=== PATIENT | male | born 1950 | race Caucasian/White ===

== ENCOUNTER 2019-07-01 16:08 | Inpatient (IN) ==
--- NOTE | 2019-07-01 16:44 | EKG Report ---
Test Performed on : 07/01/2019 4:30:47 PM Test Reason : SOB Blood Pressure : / mmHG Vent. Rate : 113 BPM Atrial Rate : 113 BPM P-R Int : 128 ms QRS Dur : 092 ms QT Int : 340 ms P-R-T Axes : 043 -12 061 degrees QTc Int : 466 ms Sinus tachycardia. Possible Left atrial enlargement Cannot rule out Anterior infarct (cited on or before 14-APR-2012) Abnormal ECG When compared with ECG of 14-APR-2012 07:39, Vent. rate has increased BY 42 BPM T wave amplitude has decreased in Inferior leads Unconfirmed Result
[2019-07-01] MEDS ORDERED: NS 1,000 ML IV ONE (16:55)
[2019-07-01] MEDS ORDERED: MAXIPIME 1 GM in NS 50 ML IV ONE (16:56)
[2019-07-01] MEDS ORDERED: NS 500 ML IV ONE ×2 (16:57→17:50)
--- NOTE | 2019-07-01 16:57 | Diag Imaging Result Doc PS360 ---
EXAM: CHEST-1 VIEW HISTORY: SOB TECHNIQUE: Single view COMPARISON: 04/14/2012 FINDINGS: The lungs are well expanded. No cardiomegaly. There are increased interstitial markings throughout both lungs. These are more prominent than on the prior study. No pleural effusions identified. Right-sided granuloma. IMPRESSION: There is likely a combination of pulmonary edema and fibrosis. Electronically signed by Yoshi Romero 07/01/2019 4:54 PM
[2019-07-01 17:09] LABS: BASO# 0.01 X1000 (0.0-0.2); BASO% 0.1 % (0.0-0.8); HEMATOCRIT 36.4 % (42.0-52.0); HEMOGLOBIN 12.3 g/dL (14.0-18.0); LYMPH# 0.31 X1000 (1.2-3.4); LYMPH% 4.4 % (20.5-51.1); MCH 31.1 PG (27-31); MCHC 33.8 g/dL (33-37); MCV 91.9 FL (81-99); MONO# 0.52 X1000 (0.11-0.59); MONO% 7.4 % (1.7-9.3); MPV 10.6 FL (7.4-10.4); NEUT# 6.17 X1000 (1.4-6.5); NEUT% 88.1 % (42.2-75.2); PLT 116 X1000 (130-400); RBC 3.96 XMIL (4.7-6.1); RDW 14.1 % (11.5-14.5); WBC 7.01 X1000 (4.8-10.8)
[2019-07-01 17:11] LABS: INR 1.05; PROTIME 13.8 Seconds (11.0-16.0); PTT 28.4 Seconds (22.3-41.8)
[2019-07-01 17:29] LABS: AGAP 11; ALB/GLOB RATIO 1.3; ALBUMIN 3.7 g/dL (3.5-5.0); ALKALINE PHOSPHATASE 59 U/L (32-122); BUN 8 mg/dL (8-22); CALCIUM 8.1 mg/dL (8.8-10.2); CHLORIDE 94 mmol/L (98-107); COSMO 263; CREATININE 0.7 mg/dL (0.7-1.2); ESTIMATED GFR > 60; GLUCOSE 194 mg/dL (70-104); GOT 31 U/L (10-34); GPT 24 U/L (10-44); MAGNESIUM 1.6 mg/dL (1.5-2.7); POTASSIUM 3.3 mmol/L (3.5-5.1); SODIUM 129 mmol/L (136-145); TCO2 24 mmol/L (25-35); TOTAL BILIRUBIN 1.24 mg/dL (0.20-1.00); TOTAL PROTEIN 6.6 g/dL (6.3-8.3)
[2019-07-01 17:31] LABS: CK PROFILE 330 U/L (24-204)
[2019-07-01] MEDS ORDERED: POTASSIUM CHLORIDE 20% LIQUID PO ONE (17:50)
[2019-07-01] MEDS ORDERED: DUONEB (A & A) INH ONE (17:52)
[2019-07-01 17:58] LABS: CK INDEX 1.8 (0.0-2.5)
[2019-07-01 18:16] LABS: URINE SOURCE CLEAN CATCH
[2019-07-01 18:22] LABS: BILIRUBIN URINE NEGATIVE (NEGATIVE); BLOOD URINE SMALL (NEGATIVE); COLOR YELLOW; GLUCOSE URINE TRACE mg/dL (NEGATIVE); KETONE URINE 20 mg/dL (NEGATIVE); LEUKOCYTES URINE NEGATIVE (NEGATIVE); NITRITE URINE NEGATIVE (NEGATIVE); PROTEIN URINE 30 mg/dL (NEGATIVE); SP GRAVITY URINE 1.009; TURBIDITY URINE CLEAR (CLEAR); UROBILINOGEN URINE 2 mg/dL (NORMAL)
[2019-07-01 18:26] LABS: UR EPITHELIAL CELLS <10 /HPF (<10); URINE BACTERIA NEGATIVE /HPF; URINE RBC <10 /HPF (<10); URINE WBC <10 /HPF (<10)
[2019-07-01] MEDS ORDERED: ULTRAM PO ONE (18:35)
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
--- NOTE | 2019-07-01 19:40 | Diag Imaging Result Doc PS360 ---
EXAM: CT ANGIOGRM PULMONARY ARTERIES HISTORY: difficulty breathing, left arm swollen TECHNIQUE: CT chest with intravenous contrast. Pulmonary arterial protocol. COMPARISON: None. FINDINGS: Normal opacification of the pulmonary arteries and their major branches. No aortic aneurysm or dissection. No cardiomegaly. No pleural effusions. There are small calcified mediastinal and right hilar lymph nodes with scattered granuloma. Moderate to prominent emphysema with fibrosis. Small infiltrate or fibrosis superiorly and apical segment of the left lower lobe. IMPRESSION: 1.No pulmonary emboli 2.Emphysema with fibrosis 3.Questionable tiny infiltrate in the left lower lobe This exam was performed using automated exposure control, adjustment of mA or kV according to patient size, and/or use of iterative reconstruction technique. Electronically signed by Yoshi Romero 07/01/2019 7:38 PM
[2019-07-01] MEDS ORDERED: KLOR-CON PO ONE (23:43)
[2019-07-01] MEDS ORDERED: MAGNESIUM SULFATE 1 GM/D5W 1 GM/100 ML IVPB IV ONE (23:43)
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
[2019-07-02] MEDS ORDERED: LOVENOX SUBQ SCH (01:30)
[2019-07-02] MEDS ORDERED: TYLENOL PO PRN (01:30)
[2019-07-02] MEDS ORDERED: ZOFRAN IV PRN (01:30)
[2019-07-02] MEDS ORDERED: MAXIPIME 1 GM in NS 50 ML IV SCH (01:30)
[2019-07-02] MEDS ORDERED: LEVAQUIN 500 MG/D5W 500 MG/100 ML IVPB IV SCH (01:30)
[2019-07-02] MEDS ORDERED: ULTRACET 37.5MG/325MG PO PRN (01:30)
[2019-07-02] MEDS: PEPCID PO SCH ×2 (02:21→08:02)
[2019-07-02] MEDS: NEURONTIN PO SCH ×2 (03:34→12:34)
[2019-07-02] MEDS: DUONEB (A & A) INH SCH ×2 (03:47→10:17)
[2019-07-02 06:53] LABS: HEMOGLOBIN A1C 7.5 % (4.8-6.0)
[2019-07-02] MEDS: HUMALOG SUBQ SCH ×2 (06:53→12:34)
[2019-07-02 07:07] LABS: AGAP 7; BUN 9 mg/dL (8-22); CALCIUM 8.1 mg/dL (8.8-10.2); CHLORIDE 103 mmol/L (98-107); COSMO 272; CREATININE 0.6 mg/dL (0.7-1.2); ESTIMATED GFR > 60; GLUCOSE 192 mg/dL (70-104); MAGNESIUM 1.9 mg/dL (1.5-2.7); POTASSIUM 3.9 mmol/L (3.5-5.1); SODIUM 134 mmol/L (136-145); TCO2 24 mmol/L (25-35)
[2019-07-02] MEDS ORDERED: PLAVIX PO SCH ×2 (09:00)
[2019-07-02] MEDS ORDERED: LIPITOR PO SCH (09:00)
[2019-07-02] MEDS ORDERED: NORVASC PO SCH (09:00)
[2019-07-02] MEDS ORDERED: ASPIRIN PO SCH ×2 (09:00)
[2019-07-02] MEDS ORDERED: LANTUS INSULIN SUBQ SCH (09:00)
[2019-07-02] MEDS ORDERED: PLETAL PO SCH (09:00)
--- NOTE | 2019-07-02 09:49 | PROGRESS NOTE ---
DATE: 07/02/2019 SUBJECTIVE: Mr. Vargas presented after having 2 to 3 days of dyspnea. This is a 69-year-old who has no primary care physician here. I think he told me he was in [place] visiting when they had put a stent in. Apparently had put a stent in his leg too, by his report. He has a problem with vascular flow in the left leg, history of hypertension, COPD, hyperlipidemia, recently diagnosed with peripheral artery disease, status post stent in the left femoral artery, coronary artery disease, status post coronary artery stent, location unknown. He says he underwent two procedures in the hospital in [place], [place], where he was staying with his niece, developed some claudication and chest pain. Procedure was 3 days before admission. He had a stent placed in the right femoral artery, and then took a bus back to [place], [place]. On the way, his bus broke down, and said on the bus, he developed fever and worsening cough. On arrival to [place], he came to the emergency room. Previously, he could walk 50 feet with a little dyspnea. He could barely go 10 to 20 feet without profound dyspnea, so admitted with right lower lobe pneumonia, chronic COPD, coronary artery disease, peripheral artery disease, diabetes mellitus type 2, and hypertension. PHYSICAL EXAMINATION: General: Today, he is awake and alert. Reports he feels a little bit better, breathing a little better. He is on O2 per nasal cannula. Vital Signs: Temperature 98.1 degrees, pulse 80, respirations 18, blood pressure 137/78. HEENT: Pupils are equal and round. Lungs: Clear in all lung louise. Cardiovascular: Regular rhythm and rate without murmur or S3. Abdomen: Soft. Skin: Warm and dry. IMAGING: His pulmonary angiogram showed no pulmonary emboli. There is emphysema with fibrosis. ASSESSMENT AND PLAN: 1. Right lower lobe pneumonia, underlying chronic obstructive pulmonary disease, exacerbation of chronic obstructive pulmonary disease. Continue his bronchodilators and his antibiotics. 2. Coronary artery disease. Aware. Apparently, recent stent. I do not have the location of where that was. 3. Peripheral artery disease. Apparently recently had intervention. I am not sure which leg he has had the intervention on. 4. Diabetes mellitus type 2. 5. Hypertension. Blood pressure appears well controlled. REVIEW OF ORDERS: I do not see any change. REVIEW OF LAB: Electrolytes unremarkable. cc: Xu Pennington MD
[2019-07-02 11:47] VITALS: BP 126/67
[2019-07-02] MEDS ORDERED: CARDURA PO SCH (21:00)
--- NOTE | 2019-07-29 13:29 | DISCHARGE SUMMARY ---
ADMISSION DATE: 07/02/2019 DISCHARGE DATE: 07/02/2019 HISTORY AND HOSPITAL COURSE: Mr. Vargas was admitted on 07/02/2019, and he left AGAINST MEDICAL ADVICE on 07/02/2019. He came with a 2 to 3-day history of dyspnea. He has no primary care physician. A 69-year-old with past medical history of hypotension, COPD, hyperlipidemia, recently diagnosed with peripheral artery disease, status post stent in the right femoral artery, and coronary artery disease, status post coronary stent, location unknown. States he underwent two procedures in a hospital in [place], [place], where he was staying with his niece. He develops severe claudication and chest pain. Underwent these procedures. His last procedure was 3 days before this admission, where he had a stent placed in the right femoral artery. He then took a bus from [place], [place], back to [place], where he resides. On the way, his bus broke down, and said while he was in the bus, he developed a fever and worsening cough. On arrival in [place], he said his cough got worse, had some dyspnea, and also got 20 feet before becoming profoundly dyspneic. Admits to having pleuritic chest pain and mild orthopnea. No paroxysmal nocturnal dyspnea, leg swelling, or extremity redness or pain. Does have some residual pain in his right groin, where he had coronary catheterization and a sheath was placed. Denies any genitourinary complaints. He does admit to having a few stools, which were nonbloody. He admits to having nausea, but no vomiting today. No focal neurologic complaints. No arthralgia, rash. The patient says the cough is nonproductive, and denies any sick contacts. ALLERGIES: He is allergic to morphine and Seroquel. LIST OF MEDICATIONS: He was on Plavix, aspirin, Cardura, Pletal, gabapentin, metformin, atorvastatin, Norvasc, Plavix 20 mg daily, Requip 0.5 mg every p.m., and Voltaren. He was admitted. ADMISSION DIAGNOSES: 1. Right lower lobe pneumonia was questionable. 2. Underlying chronic obstructive pulmonary disease. 3. History of coronary artery disease. 4. Peripheral artery disease. 5. Type 2 diabetes. 6. Hypertension. 7. Possibility of community-acquired pneumonia. His chest x-ray on admission is likely a combination of pulmonary edema and fibrosis. The patient was treated with some antibiotics and bronchodilators, and he appeared to have a right lower lobe pneumonia, underlying chronic obstructive pulmonary disease, coronary artery disease, peripheral artery disease, diabetes mellitus, and hypertension. Plan was to continue treatment. However, he went to sign out. He said he was very nervous and wanted to get out of here, and he elected to leave AGAINST MEDICAL ADVICE, and so left AGAINST MEDICAL ADVICE at 1511 on 07/02/2019. cc: Xu Pennington MD
== END 2019-07-02 15:18 | disposition left against medical advice (07) | DRG 194 ==
LOC: SUPCPDRO → ED 16:08 → SUATTDRO 07-02 00:59 → 4N 07-02 00:59
PROVIDERS: ATTEND Emergency Medicine

== ENCOUNTER 2019-07-08 16:49 | Inpatient (IN) ==
[2019-07-08] MEDS ORDERED: ASPIRIN PO ONE (17:15)
[2019-07-08 17:25] LABS: BASO# 0.05 X1000 (0.0-0.2); BASO% 1.2 % (0.0-0.8); EOS# 0.11 X1000 (0.0-0.7); EOS% 2.6 % (0.0-10.0); HEMATOCRIT 36.9 % (42.0-52.0); HEMOGLOBIN 12.3 g/dL (14.0-18.0); IMM GRAN# 0.05 X1000 (0.0-0.04); IMM GRAN% 1.2 % (0.0-0.5); LYMPH# 1.05 X1000 (1.2-3.4); LYMPH% 24.6 % (20.5-51.1); MCH 31.1 PG (27-31); MCHC 33.3 g/dL (33-37); MCV 93.2 FL (81-99); MONO# 0.32 X1000 (0.11-0.59); MONO% 7.5 % (1.7-9.3); NEUT# 2.68 X1000 (1.4-6.5); NEUT% 62.9 % (42.2-75.2); PLT 233 X1000 (130-400); RBC 3.96 XMIL (4.7-6.1); RDW 14.2 % (11.5-14.5); WBC 4.26 X1000 (4.8-10.8)
--- NOTE | 2019-07-08 17:29 | EKG Report ---
Test Performed on : 07/08/2019 5:04:32 PM Test Reason : sob Blood Pressure : / mmHG Vent. Rate : 108 BPM Atrial Rate : 108 BPM P-R Int : 128 ms QRS Dur : 086 ms QT Int : 340 ms P-R-T Axes : 000 215 137 degrees QTc Int : 455 ms Sinus tachycardia. Right superior axis deviation Nonspecific ST abnormality Abnormal ECG When compared with ECG of 01-JUL-2019 16:30, (Unconfirmed) QRS axis shifted left Unconfirmed Result
--- NOTE | 2019-07-08 17:31 | Diag Imaging Result Doc PS360 ---
EXAM: CHEST-2 VIEWS 07/08/2019 HISTORY: sob TECHNIQUE: PA and lateral chest COMMENT: There are reticulonodular interstitial opacities throughout both lungs. This was also the case on 07/01/2019. The interstitial opacities are more dramatic and coarser than on 12/21/2011. IMPRESSION: Worsened pulmonary fibrosis. The possibility of superimposed pulmonary edema or pneumonia cannot be entirely excluded. Electronically signed by Anthony Rivera 07/08/2019 5:29 PM
[2019-07-08 17:33] LABS: INR 1.07
[2019-07-08 17:34] LABS: PTT 25.4 Seconds (22.3-41.8)
[2019-07-08 17:48] LABS: AGAP 9; ALBUMIN 3.6 g/dL (3.5-5.0); ALKALINE PHOSPHATASE 74 U/L (32-122); BUN 11 mg/dL (8-22); CALCIUM 8.8 mg/dL (8.8-10.2); CHLORIDE 105 mmol/L (98-107); CK PROFILE 256 U/L (24-204); COSMO 283; CREATININE 0.9 mg/dL (0.7-1.2); ESTIMATED GFR > 60; GLUCOSE 172 mg/dL (70-104); GOT 25 U/L (10-34); GPT 31 U/L (10-44); POTASSIUM 4.5 mmol/L (3.5-5.1); SODIUM 140 mmol/L (136-145); TCO2 26 mmol/L (25-35); TOTAL PROTEIN 7.2 g/dL (6.3-8.3)
[2019-07-08 18:05] LABS: CK INDEX 2.5 (0.0-2.5); CK-MB 6.48 ng/mL (0.0-5.0)
[2019-07-08 21:07] LABS: URINE SOURCE CLEAN CATCH
[2019-07-08 21:09] LABS: BILIRUBIN URINE NEGATIVE (NEGATIVE); BLOOD URINE NEGATIVE (NEGATIVE); COLOR YELLOW; GLUCOSE URINE NEGATIVE (NEGATIVE); KETONE URINE NEGATIVE (NEGATIVE); LEUKOCYTES URINE NEGATIVE (NEGATIVE); NITRITE URINE NEGATIVE (NEGATIVE); PH URINE 6.5; PROTEIN URINE TRACE mg/dL (NEGATIVE); SP GRAVITY URINE 1.019; TURBIDITY URINE CLEAR (CLEAR); UROBILINOGEN URINE NORMAL (NORMAL)
[2019-07-08 21:11] LABS: UR EPITHELIAL CELLS <10 /HPF (<10); URINE BACTERIA NEGATIVE /HPF; URINE RBC <10 /HPF (<10); URINE WBC <10 /HPF (<10)
[2019-07-08] MEDS ORDERED: NITROGLYCERIN SL ONE (22:32)
[2019-07-08] MEDS ORDERED: LEVAQUIN 500 MG/D5W 500 MG/100 ML IVPB IV ONE (22:32)
[2019-07-08] MEDS ORDERED: DUONEB (A & A) INH PRN (22:50)
[2019-07-08] MEDS ORDERED: NS 1,000 ML IV SCH (23:00)
[2019-07-08] MEDS ORDERED: ASPIRIN ONE (23:07)
[2019-07-08] MEDS: NITROGLYCERIN TOP SCH (23:08)
[2019-07-08] MEDS: DUONEB (A & A) INH SCH (23:23)
[2019-07-09 01:08] LABS: CK INDEX 2.4 (0.0-2.5); CK-MB 6.64 ng/mL (0.0-5.0)
[2019-07-09] MEDS: NORCO-7.5 PO PRN ×4 (01:18→23:47)
[2019-07-09] MEDS: DUONEB (A & A) INH SCH ×6 (02:34→23:13)
[2019-07-09] MEDS: PRILOSEC PO SCH (07:00)
[2019-07-09] MEDS ORDERED: SALINE LOCK IV FLUID XX ONE (07:01)
--- NOTE | 2019-07-09 07:26 | HISTORY AND PHYSICAL ---
CHIEF COMPLAINT: Right-sided chest pain. HISTORY OF PRESENT ILLNESS: Mr. John Vargas is a 69-year-old male who has a history of hypertension, COPD, hyperlipidemia, and recently diagnosed peripheral artery disease, status post stent to the right femoral artery, and also has a history of coronary artery disease, status post PCI. The patient was recently admitted to our hospital on 07/02/2019. However, the patient signed out and left AGAINST MEDICAL ADVICE, and during that hospital stay, he was diagnosed as having right lower lobe pneumonia. The patient now presents to the hospital because of right- sided chest pain, which he has had for about 3 days. He describes the pain as sharp, intermittent. On a scale of 0 to 10, it is 7/10. No known alleviating factors. Made worse with activity. He has shortness of breath. The patient was seen and evaluated in the ER. He had an x- ray of the chest done, which showed evidence of worsening pulmonary fibrosis with possible superimposed pulmonary edema or pneumonia, which cannot be entirely excluded. The patient will now be admitted to the floor now for further management. PAST MEDICAL HISTORY: Hypertension, COPD, hyperlipidemia, peripheral arterial disease status post stent to the right femoral artery, coronary artery disease status post PCI. PAST SURGICAL HISTORY: He has had left shoulder surgery, as well as left hip surgery and also back surgery. SOCIAL HISTORY: The patient smokes cigarettes and uses marijuana. No alcohol use. FAMILY HISTORY: Not contributory. ALLERGIES: He is allergic to Seroquel as well as morphine. REVIEW OF SYSTEMS: Constitutional: Has fever. 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 Eyes: Blurred vision. ENT: Sinus [*] Cardiovascular: As in the history of present illness. Respiratory: Has cough. GI: Has nausea. No abdominal pains. Dermatology: No skin lesions. Musculoskeletal: Has joint pains. Hematology: He bruises easily. Psychiatric: Has anxiety with depression. Endocrinology: No thyroid disease or diabetes. PHYSICAL EXAMINATION: VITAL SIGNS: Temperature is 97.9 degrees, pulse is 110, respiratory rate 16, blood pressure is 126/67, oxygen saturation is 92%. HEENT: He is atraumatic, normocephalic. He is anicteric. Extraocular movements intact. No oral lesions noted. NECK: No lymphadenopathy or thyromegaly. CARDIOVASCULAR: S1, S2. RESPIRATORY: Has evidence of good air entry bilaterally with occasional rhonchi noted. ABDOMEN: Soft, nontender. No masses felt. EXTREMITIES: No evidence of edema. CENTRAL NERVOUS SYSTEM: No obvious focal deficit noted. IMAGING AND LABORATORY DATA: WBC is 4.26, hematocrit is 36.9, with a platelet count of 233,000. Sodium is 140, potassium 4.5, chloride is 105, bicarb is 26, BUN is 11, creatinine 0.9. X-ray of the chest shows worsened pulmonary fibrosis with superimposed pulmonary edema and/or pneumonia. EKG shows sinus tachycardia with right superior axis deviation, nonspecific ST abnormalities. ASSESSMENT AND PLAN: 1. Atypical chest pain. Will place the patient on telemetry, get serial cardiac enzymes, maintain the patient on aspirin as well as beta shawn, nitropaste as needed for chest pain. Consult with Cardiology. 2. Hypertension. Optimize blood pressure control. 3. Probable pneumonia. Obtain sputum and blood cultures. Maintain the patient on antibiotics. 4. Pulmonary fibrosis. Maintain the patient on supplemental oxygen. Consult with Pulmonology. 5. Probable pulmonary edema. Maintain the patient on diuretics as needed. Monitor intakes and outputs, as well as daily weights. Request 2D echocardiogram of the heart. 6. Peripheral arterial disease. The patient indicates that he recently had a stent in the right lower extremity about 5 days ago. This was done in [place], [place]. Will consult with the surgical team. 7. Deep vein thrombosis prophylaxis. Lovenox. 8. Gastrointestinal prophylaxis. Proton pump inhibitor. cc: Kris Montes De Oca MD
[2019-07-09] MEDS: PLAVIX PO SCH (09:00)
[2019-07-09] MEDS: ASPIRIN PO SCH (09:00)
[2019-07-09] MEDS: COREG PO SCH ×2 (09:00→21:51)
[2019-07-09 09:34] LABS: CHOLESTEROL 99 mg/dL (0-200); HDL 44 mg/dL (35-55); LDL 43 mg/dL; TRIGLYCERIDES 62 mg/dL (39-160); VLDL 12 mg/dL
[2019-07-09 10:26] LABS: CK INDEX 2.6 (0.0-2.5); CK-MB 6.15 ng/mL (0.0-5.0)
--- NOTE | 2019-07-09 10:53 | GENERAL SURGERY CONSULTATION ---
DATE: 07/09/2019 REQUESTING PHYSICIAN: Hospitalist. REASON FOR CONSULTATION: Consult concerning peripheral vascular disease. HISTORY OF PRESENT ILLNESS: A 69-year-old gentleman with a history of hypertension, COPD, hyperlipidemia, who has had a stent done in his right leg in [place] apparently 5 days ago. He had previously been in the hospital here and left against medical advice. I do not have any of the reports from the outlying facility about his procedure done, but he said in the left leg he has had 100% blockage too, and they wanted to do a procedure then. For several social reasons, he did not stick around [place]. He complained of some right leg pain, but initially came in with right- sided chest pain. He is currently being evaluated by the hospitalist service for that. I was asked to weigh an opinion on his right leg. He reports pain, but not really a claudication like history. PAST MEDICAL HISTORY: Includes hypertension, COPD, hyperlipidemia, peripheral artery disease, coronary artery disease. PAST SURGICAL HISTORY: Includes left shoulder surgery, left hip surgery, back surgery, previous percutaneous intervention of his right leg. SOCIAL HISTORY: Current smoker, uses marijuana. FAMILY HISTORY: Reviewed with the patient and noncontributory. ALLERGIES: Seroquel, morphine. REVIEW OF SYSTEMS: A full 14 systems reviewed and negative except as specified in HPI. HOME MEDICATIONS: Reviewed. PHYSICAL EXAMINATION: Vital Signs: The patient is currently afebrile. His vital signs are stable. General: No acute distress. A disheveled male, looks his stated age. HEENT: Normocephalic, atraumatic. Pupils equal, round, reactive to light. Mucous membranes moist. Oropharynx benign. Neck: Supple, trachea midline. Cardiovascular: Regular rate and rhythm. Lungs: Grossly clear. Abdomen: Soft, nontender. Extremities: In the right groin, there is a firm area likely, in the area where they had previously accessed. It is not pulsatile, but it may be a hematoma. There is some ecchymosis noted. The right leg is perfused. On the extremities, the left leg is also perfused, but I could not easily feel a pulse to either leg. Neurologic: Grossly intact. Skin: Bruising as noted above. Vascular: As noted above. LABORATORY DATA: Reviewed. Creatinine is normal. ASSESSMENT AND PLAN: A 69-year-old gentleman with reported peripheral vascular disease. Peripheral vascular disease: At this time, he has a history of a recent stent. We will need to get a CT angiography to delineate the anatomy better. Given his recent stent and unknown exactly where it is, we cannot really do an FIORDALIZA at this point. He is on Plavix it looks like, so we will continue that. No immediate plans for surgical intervention until we get the CT angiography. cc: Payam Zambrano MD
[2019-07-09] MEDS: NITROGLYCERIN TOP SCH ×2 (11:00→17:43)
[2019-07-09] MEDS ORDERED: KLONOPIN PO ONE (11:24)
[2019-07-09] MEDS: NICODERM PATCH TD SCH (11:45)
--- NOTE | 2019-07-09 12:52 | CONSULTATION ---
DATE OF CONSULTATION: 07/09/2019 IMPRESSION: 1. Chest pain atypical for myocardial ischemia. Troponins negative. Suspect likely noncardiac. 2. Atherosclerotic coronary disease. Patient recently had coronary angioplasty/stenting of unspecified vessel while in [facility]. He initially presented with atypical chest pain and right lower extremity claudication as best I can tell. 3. Chronic obstructive pulmonary disease. 4. Hypertension. 5. Peripheral artery disease with recent percutaneous interventions on right lower extremity. 6. Recurrent right hip pain and some discomfort right lower extremity. 7. Chronic ongoing cigarette use. 8. Anxiety disorder. 9. Polysubstance abuse with marijuana. RECOMMENDATIONS: 1. Continue dual antiplatelet therapy with aspirin and Plavix. 2. Echocardiography. 3. Add low-dose statin given recent lipid profile with LDL cholesterol of 99. 4. Smoking cessation strongly advised. 5. Try and obtain records from [place] regarding patient's coronary angioplasty/stenting and management of peripheral artery disease. 6. Surgical evaluation of patient's peripheral artery disease. HISTORY: This 69-year-old white male with past history of recent coronary angioplasty/stenting, recent percutaneous intervention on right lower extremity after he presented with claudication, hypertension, COPD, and chronic ongoing cigarette use, presented to the emergency room with multiple complaints, including some fleeting sharp pain in the right posterior chest and discomfort in the right hip. He has had some cough productive of white sputum. Because of chest symptoms and recent coronary angioplasty/stenting, Cardiology was consulted. He does not describe anything that sounds like angina prior to his coronary angioplasty/stent nor recently. He describes some "fleeting electrical" discomfort in the chest. He presented to hospital in [facility] with what sounds like fairly intense right lower extremity claudication. He describes having extensive evaluation there and percutaneous intervention on right lower extremity. He also had cardiac evaluation and had a coronary angioplasty/stenting. He is somewhat sketchy about his compliance with medications. He believes he has been continued on Plavix and aspirin. He was recently here in the emergency room for evaluation of atypical chest pain. Chest CT scan was negative for pulmonary embolus. He was thought to have possible right-sided pneumonia, but left AMA. He relates that he started feeling worse and came back to the hospital. He describes some fleeting discomfort in the right very low posterior chest region. As well as right hip. He has had cough productive of white sputum, but is not aware of any fever. PAST MEDICAL HISTORY: 1. Atherosclerotic coronary disease. 2. Peripheral artery disease. 3. Chronic obstructive pulmonary disease. 4. Hypertension. 5. Hyperlipidemia. 6. Inconsistent medical compliance. 7. Anxiety disorder. 8. Polysubstance abuse with marijuana. PAST SURGICAL HISTORY: Includes unspecified left shoulder surgery, unspecified left hip surgery, unspecified back surgery, and recent peripheral artery disease management with percutaneous intervention on right lower extremity. ALLERGIES: He is allergic or intolerant to Seroquel and morphine. MEDICATIONS PRIOR TO ADMISSION: As listed. SOCIAL HISTORY: He lives in [place] and is disabled. He is . He has history of chronic cigarette use, as well as occasional use of marijuana. He does not use alcohol. FAMILY HISTORY: Noncontributory. REVIEW OF SYSTEMS: Pulmonary: Noteworthy for some chronic exertional shortness of breath and cough productive of white sputum. Gastrointestinal: Negative. Constitutional: Negative. The remainder of review of systems negative/noncontributory with 14 total systems reviewed. PHYSICAL EXAMINATION: General: This is an older white male with lloyd in no distress, who appears somewhat anxious. Vital signs: Blood pressure 154/94, heart rate 107. HEENT: Extraocular movements appear intact. Mucous membranes are moist. Neck: Supple without jugular venous distention. There are no carotid bruits. Chest: Auscultation to the chest reveals a few expiratory wheezes scattered and scant rhonchi. Cardiac: Exam reveals a regular rate and rhythm without appreciable murmur or gallop. Abdomen: Soft. Bowel sounds normal. Extremities: Without edema. Pedal pulses are difficult to palpate bilaterally. Neurologic: Exam reveals him to be alert and fully oriented. Speech is fluent. Moves all 4 extremities equally well. Skin: Warm and dry. Psych exam: Reveals him to be somewhat anxious. IMAGING: A 12 lead EKG demonstrates sinus rhythm and nonspecific ST and T-wave abnormality. LABORATORY DATA: Includes sodium 140, potassium 4.5, chloride 105, [*]26. BUN 11, creatinine 0.9, glucose 172. Initial troponin-T high sensitivity 26, followup troponin-T high sensitivity 27. White blood cell count 4.26, hematocrit 36.9, hemoglobin 12.3, platelet count 233. cc: Barry Ely MD
--- NOTE | 2019-07-09 13:22 | Diag Imaging Result Doc PS360 ---
EXAM: CT ANGIOGRM PULMONARY ARTERIES INDICATION: chest pain TECHNIQUE: This exam was performed using automated exposure control, adjustment of mA or kV according to patient size, and/or use of iterative reconstruction technique. Thin section axial images and 3-D MIPS were obtained. COMPARISON: 07/01/2019 FINDINGS: There is no evidence of pulmonary embolism. There is no evidence of thoracic aortic dissection or aneurysm. There are calcified mediastinal and hilar lymph nodes indicating prior granulomatous disease. There is no cardiomegaly. There is a combination of advanced pulmonary edema with concomitant pulmonary fibrosis. On the previous study, there was a left lower lobe airspace consolidation. It has now nearly resolved. There is no pleural fluid collection or pneumothorax. IMPRESSION: 1.Pulmonary emphysema as well as fibrosis. 2.Interval near resolution of the airspace consolidation in the left lower lobe seen on the previous study. 3.No evidence of pulmonary embolism. Electronically signed by Jesus Melendez 07/09/2019 1:19 PM
--- NOTE | 2019-07-09 14:26 | Diag Imaging Result Doc PS360 ---
EXAM: CT ANGIOGRAM AORTA W/RUNOFF INDICATION: PVD with recent stent in RLE at outside facility TECHNIQUE: This exam was performed using automated exposure control, adjustment of mA or kV according to patient size, and/or use of iterative reconstruction technique. Thin section axial images and 3-D MIPS were obtained. COMPARISON: None. FINDINGS: There is extensive atherosclerotic calcification at the distal aorta and milder patchy atherosclerotic calcification proximally. The aorta remains patent. No aortic aneurysm is appreciated. There is extensive atherosclerotic disease involving the common iliac arteries. There is mild to moderate luminal narrowing. There is also extensive internal iliac artery atherosclerotic calcification. There is mild atherosclerotic calcification at the left external iliac artery and moderate calcification at the right external iliac artery. There is mild luminal narrowing at the distal external iliac artery on the right. There is minimal atherosclerotic calcification at the origins of the SMA and the celiac trunk. They both remain patent. The LUCY is patent. There are two left and two right renal arteries. There is minimal atherosclerotic calcification at the origins of the renal arteries bilaterally and mild white calcification at the left renal hilum. The arteries remain patent. No high-grade renal artery stenosis is appreciated. Splenomegaly is noted incidentally with the spleen measuring up to 15.9 cm in the greatest axial dimension. There has been a prior cholecystectomy. There is a tiny nonobstructing intrarenal stone at the lower pole of the right kidney. There is no hydronephrosis. No focal bowel wall thickening or bowel obstruction is identified. There are a few mildly prominent loops of small bowel containing air, possibly indicating mild ileus. There is no obstructive bowel pattern. No other definite acute abdominal or pelvic pathology is appreciated. Right: There is moderate atherosclerotic calcification associated with the common femoral artery but it remains patent. There is extensive atherosclerotic disease involving the superficial femoral artery, which becomes completely occluded at the proximal thigh. It is reconstituted distally and exhibits intermittent high-grade stenosis. There is extensive atherosclerotic calcification involving the popliteal artery. There is moderate intermittent popliteal stenosis. The anterior tibial artery is widely patent throughout its course. There is occlusion of the posterior tibial artery at its origin. However, it is reconstituted at the mid calf and provides runoff to the foot. The peroneal artery is diminutive but appears to remain patent throughout providing runoff to the foot. Left: There is moderate atherosclerotic disease involving the common femoral artery, which remains patent. There is extensive atherosclerotic calcification involving the superficial femoral artery with intermittent moderate to high-grade stenosis. There is a stent in the superficial femoral artery that extends from about the mid thigh to the proximal popliteal artery. The stent is patent. There is moderate atherosclerotic disease involving the proximal popliteal artery but it remains patent. There is trace atherosclerotic calcification at the proximal anterior tibial artery. However, it remains patent throughout its course providing runoff to the foot. There is extensive atherosclerotic disease involving the tibioperoneal trunk with subtotal occlusion. There is focal severe stenosis involving the posterior tibial artery proximally. However, there remains patent thereafter providing runoff to the foot. The peroneal artery is very diminutive. However, it appears to be patent providing runoff to the foot. IMPRESSION: 1.Extensive lower extremity atherosclerotic disease as detailed above. 2.Incidental splenomegaly. Electronically signed by Jesus Melendez 07/09/2019 2:23 PM
[2019-07-09] MEDS: HUMALOG SUBQ SCH ×3 (14:47→21:51)
--- NOTE | 2019-07-09 16:00 | ECHO REPORT ---
ORDER DATE: 07/09/2019 INTERPRETING PHYSICIAN: Dr. Royal Brown. ECHOCARDIOGRAPHIC MEASUREMENTS: 1. Interventricular septum: 1.1 cm. 2. Left ventricular posterior wall: 1.1 cm. 3. Diastolic diameter: 4.2 cm. 4. Left atrium: 4 cm. 5. Aorta: 2.1 cm. SUMMARY OF THE 2-DIMENSIONAL IMAGIN. Aortic valve leaflets were trileaflet. 2. Pulmonic valve was normal. 3. Tricuspid valve was normal. 4. Mitral valve was normal. 5. Normal left ventricular cavity size. 6. Estimated ejection fraction of 55%. 7. Endocardium not well visualized in all views. 8. There is mild septal hypokinesis noted. 9. There is grade 1 diastolic dysfunction. 10. Mitral valve was normal. 11. There is mild mitral regurgitation. 12. Tricuspid valve was normal. 13. There is mild tricuspid regurgitation. 14. Peak velocity across the tricuspid valve less than 2 meters per second. 15. Peak velocity across the aortic valve less than 2 meters per second. 16. By Doppler studies, there is no aortic stenosis or regurgitation. 17. There is no pericardial effusion or obvious intracardiac mass or thrombus seen. 18. Technically suboptimal study. Endocardium not well visualized in all views. cc: MD Kris Nance MD
[2019-07-09 16:02] LABS: CK INDEX 2.6 (0.0-2.5); CK-MB 5.96 ng/mL (0.0-5.0)
[2019-07-09 16:59] LABS: URINE SOURCE CLEAN CATCH
[2019-07-09 17:07] LABS: BILIRUBIN URINE NEGATIVE (NEGATIVE); BLOOD URINE NEGATIVE (NEGATIVE); COLOR YELLOW; GLUCOSE URINE NEGATIVE (NEGATIVE); KETONE URINE NEGATIVE (NEGATIVE); LEUKOCYTES URINE NEGATIVE (NEGATIVE); NITRITE URINE NEGATIVE (NEGATIVE); PH URINE 6.5; PROTEIN URINE TRACE mg/dL (NEGATIVE); SP GRAVITY URINE 1.034; TURBIDITY URINE CLEAR (CLEAR); UROBILINOGEN URINE NORMAL (NORMAL)
[2019-07-09 17:09] LABS: UR EPITHELIAL CELLS <10 /HPF (<10); URINE BACTERIA NEGATIVE /HPF; URINE RBC <10 /HPF (<10); URINE WBC <10 /HPF (<10)
[2019-07-09] MEDS: LOVENOX SUBQ SCH (17:45)
--- NOTE | 2019-07-09 18:02 | PROGRESS NOTE ---
DATE: 07/09/2019 SUBJECTIVE: Patient has no major complaints. He still has some chest discomfort. OBJECTIVE: Vital signs: Blood pressure is 169/84, heart rate 98, respiratory rate 20, temperature 98.1 degrees. Cardiovascular: Regular rate and rhythm. Pulmonary: Bilateral breath sounds. Clear to auscultation. GI: Soft, nontender, nondistended. Bowel sounds were positive. LABORATORY DATA: Imaging: Aortic runoff shows disease with a lot of collateral flow. There is a superficial femoral stent on the right which is patent and there is flow, subtotal occlusion, but with runoff. I am not sure if there is anything amenable to repair, but we will let surgery decide. She is currently on aspirin and Plavix. IMPRESSION: Chest pain. Waiting on records because apparently he just got stented about 3 weeks ago, so waiting on cardiology recommendations and review of records. CTA was negative for PE. DISPOSITION: Pending clinical status. We will continue to follow. cc: Manuel Frances MD
--- NOTE | 2019-07-09 21:41 | PULMONOLOGY CONSULTATION ---
DATE: 07/09/2019 REQUESTING CLINICIAN: Kris Montes De Oca MD REASON FOR CONSULTATION: Pulmonary fibrosis. HISTORY OF PRESENT ILLNESS: Mr. Vargas is a 69-year-old white male with COPD, ongoing tobacco use, ongoing marijuana use, who was admitted to 07/01/2019 with a tiny pneumonia in the left lower lobe. He was diagnosed with a community-acquired pneumonia and then left against medical advice. The patient presented to the emergency room and complained of atypical chest pain. CT scan of the thorax was performed which reveals diffuse pulmonary emphysema with a component of fibrosis. Previous left lower lobe infiltrate has resolved. He is currently being evaluated by Cardiology for atypical chest pain. PAST MEDICAL HISTORY PROBLEM LIST: 1. Chronic obstructive pulmonary disease with continued tobacco use. 2. Hypertension. 3. Peripheral vascular disease status post recent stent placement. 4. Coronary artery disease status post stent placement. 5. Status post left hip surgery. 6. History of back surgery. 7. Status post shoulder surgery. SOCIAL HISTORY: He continues to smoke marijuana and cigarettes. Denies significant alcohol use. FAMILY HISTORY: Noncontributory to current presentation. PHYSICAL EXAMINATION: General: Reveals a well-developed, well-nourished male who appears his stated age, resting comfortably and in no distress. BP 150/70, heart rate 92, respiratory rate 18, oxygen saturation 84% on presentation. HEENT: Pupils are equal and reactive. Oropharynx appears clear. Neck: Supple. Chest: Reveals prolonged expiratory phase without significant wheezing. Cardiac Exam: S1. S2. Abdomen: Soft. Extremities: Warm to the touch. IMPRESSION: 1. A 69-year-old with chronic obstructive pulmonary disease.. 2. Transient hypoxemia. 3. Dyspnea on exertion. 4. Ongoing nicotine addiction and tobacco use. PLAN: 1. Encourage patient to discontinue tobacco and marijuana. 2. Yearly influenza vaccines. 3. Consider outpatient pulmonary function studies. cc: Dion Orellana MD
[2019-07-09] MEDS: REQUIP PO SCH (21:50)
[2019-07-09] MEDS: PRAVACHOL PO SCH (21:51)
[2019-07-09] MEDS ORDERED: LEVAQUIN 500 MG/D5W 500 MG/100 ML IVPB IV SCH (23:00)
[2019-07-10] MEDS: NITROGLYCERIN TOP SCH ×4 (01:58→12:18)
[2019-07-10] MEDS: DUONEB (A & A) INH SCH ×6 (04:31→23:57)
[2019-07-10] MEDS: PRILOSEC PO SCH ×2 (05:48→06:29)
[2019-07-10] MEDS: NORCO-7.5 PO PRN ×3 (05:48→18:32)
[2019-07-10] MEDS: HUMALOG SUBQ SCH ×4 (06:48→23:12)
--- NOTE | 2019-07-10 06:48 | GENERAL SURGERY PROGRESS NOTE ---
DATE: 07/10/2019 SUBJECTIVE: Patient seems to be doing about the same. Upon further questioning, he gives somewhat of a history of claudication, but no real rest pains scenario. His CT angiography shows significant disease bilaterally. OBJECTIVE: Vital Signs: Patient is currently afebrile. His vital signs are stable. General: No acute distress. HEENT: Normocephalic, atraumatic. Pupils equal, round, react to light. Mucous membranes moist. Oropharynx benign. Neck: Supple. Trachea midline. Cardiovascular: Regular rate and rhythm. Lungs: Grossly clear. Abdomen: Soft, nontender. Extremities: Moves all extremities. Neurologic: Grossly intact. Skin: No signs of jaundice. Vascular: All extremities perfused. LABORATORY: None this morning as of yet. IMAGING: CTA as noted above. ASSESSMENT AND PLAN: A 69-year-old gentleman with atypical chest pain with peripheral vascular disease. Peripheral vascular disease: At this time, I would like to have his chest pain worked up fully first and likely can evaluate him further as an outpatient. He does not have any critical limb ischemia, so we do not need to do any emergent operation, and he can follow up with myself or Dr. Agustin as an outpatient here in the near future. cc: Payam Zambrano MD
[2019-07-10 06:58] LABS: BASO# 0.02 X1000 (0.0-0.2); BASO% 0.5 % (0.0-0.8); EOS# 0.12 X1000 (0.0-0.7); EOS% 2.8 % (0.0-10.0); HEMATOCRIT 38.3 % (42.0-52.0); HEMOGLOBIN 12.5 g/dL (14.0-18.0); IMM GRAN# 0.09 X1000 (0.0-0.04); IMM GRAN% 2.1 % (0.0-0.5); LYMPH# 0.95 X1000 (1.2-3.4); MCH 30.6 PG (27-31); MCHC 32.6 g/dL (33-37); MCV 93.6 FL (81-99); MONO# 0.48 X1000 (0.11-0.59); MONO% 11.1 % (1.7-9.3); MPV 10.3 FL (7.4-10.4); NEUT# 2.65 X1000 (1.4-6.5); NEUT% 61.5 % (42.2-75.2); PLT 255 X1000 (130-400); RBC 4.09 XMIL (4.7-6.1); RDW 14.1 % (11.5-14.5); WBC 4.31 X1000 (4.8-10.8)
[2019-07-10 07:44] LABS: AGAP 12; BUN 11 mg/dL (8-22); CALCIUM 8.9 mg/dL (8.8-10.2); CHLORIDE 103 mmol/L (98-107); COSMO 276; CREATININE 0.9 mg/dL (0.7-1.2); ESTIMATED GFR > 60; GLUCOSE 149 mg/dL (70-104); POTASSIUM 4.3 mmol/L (3.5-5.1); SODIUM 137 mmol/L (136-145); TCO2 22 mmol/L (25-35)
--- NOTE | 2019-07-10 07:49 | EKG Report ---
Test Performed on : 07/10/2019 07:28:49 AM Test Reason : chest pain Blood Pressure : / mmHG Vent. Rate : 091 BPM Atrial Rate : 091 BPM P-R Int : 130 ms QRS Dur : 094 ms QT Int : 390 ms P-R-T Axes : 052 027 061 degrees QTc Int : 479 ms Sinus rhythm. with occasional premature ventricular complexes. Possible Left atrial enlargement Borderline ECG When compared with ECG of 08-JUL-2019 17:04, (Unconfirmed) premature ventricular complexes. are now present QRS axis shifted right Confirmed by Zenon BENAVIDEZ, Nemesio Ott ([id number]) on 07/12/2019 2:32:43 PM
[2019-07-10 08:42] LABS: HEMOGLOBIN A1C 8.1 % (4.8-6.0)
[2019-07-10] MEDS: PLAVIX PO SCH (08:50)
[2019-07-10] MEDS: ASPIRIN PO SCH (08:50)
[2019-07-10] MEDS: COREG PO SCH ×2 (08:50→23:27)
[2019-07-10] MEDS: LOVENOX SUBQ SCH (08:50)
[2019-07-10] MEDS: NICODERM PATCH TD SCH (08:50)
[2019-07-10] MEDS ORDERED: ASPIRIN PO SCH (09:00)
--- NOTE | 2019-07-10 09:27 | Extremity Venous Study ---
PROCEDURE NAME: Venous U/S Bilateral Legs - 07/09/2019 REQUESTING PHYSICIAN: Dr. Frances. CONSULTANT EDUCATION: Pedro. INDICATION: Edema. EQUIPMENT: [employer] Vivid E9 ultrasound system with a 9 L-D transducer. FINDINGS: Images of bilateral lower extremity venous systems were obtained in both sagittal and transverse planes. Doppler was used to evaluate the veins for spontaneity, phasicity, respiratory excursion, and digital augmentation. RESULTS: Normal venous compression. Normal venous flow. No obvious superficial or deep venous thrombosis noted. INTERPRETATION: Essentially normal bilateral lower extremity venous study. cc: MD Manuel Vilchis MD
--- NOTE | 2019-07-10 17:59 | PROGRESS NOTE ---
DATE: 07/10/2019 SUBJECTIVE: Patient has no major complaints. OBJECTIVE: Vital Signs: Blood pressure 160/89, heart rate of 86, respiratory rate of 20, temperature 97.9 degrees, 100% on room air. Cardiovascular: Regular rate and rhythm. Pulmonary: Bilateral breath sounds clear to auscultation. Gastrointestinal: Soft, nontender, nondistended. Bowel sounds are positive. LABORATORY: White count 4, hemoglobin 12 and hematocrit 38, platelets 255,000. Basic was normal. PROBLEM LIST: 1. Chest pain. Waiting on records for recent stent. He has not a myocardial infarction. Dr. Ely, I do not see a note by him today, but reportedly I think they said his heart looked to be in good shape. Echo looks good, grade 1 diastolic function, EF 55%. 2. Peripheral vascular disease (PVD). He is still having cramping. I think we will just use Cilostazol to see if that may help with some increasing of his circulation. He is on Levaquin. 3. Chronic obstructive pulmonary disease exacerbation, hypoxia. He seems to be doing okay. I am not really sure he needs Levaquin but he does not have a white count. In any case, I think if everything looks good, I anticipate discharge tomorrow. cc: Manuel Frances MD
[2019-07-10] MEDS: LEVAQUIN PO SCH (18:36)
--- NOTE | 2019-07-10 19:06 | PROGRESS NOTE ---
DATE: 07/10/2019 SUBJECTIVE: The patient continues without further chest discomfort. He relates feeling very anxious. OBJECTIVE: Vital Signs: Blood pressure 160/89, heart rate 86, oxygen saturation 100% on room air. HEENT exam: Extraocular muscles intact. Mucous membranes moist. Neck: Supple. No jugular venous distention. Chest: Is clear to auscultation bilaterally. Cardiac: Reveals a regular rate and rhythm without appreciable murmur or gallop. Extremities: Are without edema. LABORATORY DATA: Includes initial high sensitivity troponin of 27. Followup high sensitivity troponin of 24 and 24. Initial CPK, 256 with followup CPK of 274, 240, 225 with CPK MB indices of 2.5, 2.4, 2.6, and 2.6. White blood cell count 4.31, hematocrit 38.3, hemoglobin 12.5, platelet count 255,000. Sodium 137, potassium 4.3, chloride 103, carbon dioxide 22, BUN 11, creatinine 0.9. Glucose 149. IMPRESSIONS: 1. Recent chest pain very atypical for myocardial ischemia. Cardiac enzymes benign. Suspect very likely noncardiac. 2. Atherosclerotic coronary disease. Patient recently had angioplasty/stenting of unspecified vessel while an [facility]. He continues without angina. 3. Chronic obstructive pulmonary disease. 4. Hypertension. 5. Peripheral artery disease. 6. Recurrent right hip pain some discomfort in the right lower extremity. 7. Chronic ongoing cigarette use. 8. Anxiety disorder. 9. Polysubstance abuse with marijuana. RECOMMENDATIONS: 1. Continue dual antiplatelet therapy and medical management of the patient's coronary atherosclerosis. 2. Followup echocardiography. 3. Smoking cessation strongly advised along with sensation of marijuana use. 4. Given patient's apparent clinical stability from a cardiac standpoint, it is reasonable for him to go home on medical management. cc: Barry Ely MD
--- NOTE | 2019-07-10 21:40 | PULMONOLOGY PROGRESS NOTE ---
DATE: 07/10/2019 SUBJECTIVE: The patient is awake and alert. His breathing has improved. He continues to have some right lower extremity pain, but no evidence of overt limb ischemia. OBJECTIVE: Vital Signs: The patient has been afebrile for the last 24 hours. Blood pressure 160/89, heart rate 86, respiratory rate 20, oxygen saturation 100% on room air. HEENT: Pupils are equal and reactive. Oropharynx is clear. Neck: Supple. Chest: Reveals prolonged expiratory phase, but relatively clear lung louise. Cardiac: S1, S2. Abdomen: Soft. Extremities: Without edema. IMPRESSION: 1. 69-year-old with severe chronic obstructive pulmonary disease, with component of fibrosis. 2. Transient hypoxemia. 3. Dyspnea on exertion. 4. Ongoing nicotine/marijuana addiction and tobacco use. RECOMMENDATIONS: 1. Strongly encourage patient to discontinue all tobacco and marijuana products given his severe vascular disease. 2. Continue influenza vaccines. 3. Available for additional management questions if needed. cc: Dion Orellana MD
[2019-07-10] MEDS: REQUIP PO SCH (23:08)
[2019-07-10] MEDS: PRAVACHOL PO SCH (23:08)
[2019-07-10] MEDS: PLETAL PO SCH (23:27)
[2019-07-10] MEDS: KLONOPIN PO PRN (23:38)
[2019-07-11] MEDS: NORCO-7.5 PO PRN ×2 (01:22→07:19)
[2019-07-11] MEDS: DUONEB (A & A) INH SCH ×3 (04:11→11:34)
[2019-07-11] MEDS: HUMALOG SUBQ SCH ×2 (06:29→11:28)
[2019-07-11] MEDS: PRILOSEC PO SCH (07:04)
--- NOTE | 2019-07-11 09:34 | GENERAL SURGERY PROGRESS NOTE ---
DATE: 07/11/2019 Reviewed notes from other physicians who agree with the patient starting Pletal at this point. I would like to see him as an outpatient to evaluate him further for his peripheral vascular disease. He can either see myself or Dr. Agustin, but we will need to hold off on any kind of surgical intervention while he is in the hospital given his chest pain. cc: Payam Zambrano MD
[2019-07-11] MEDS: NICODERM PATCH TD SCH (10:32)
[2019-07-11] MEDS: COREG PO SCH (10:34)
[2019-07-11] MEDS: LEVAQUIN PO SCH (10:34)
[2019-07-11] MEDS: PLAVIX PO SCH (10:34)
[2019-07-11] MEDS: LOVENOX SUBQ SCH (10:34)
[2019-07-11] MEDS: PLETAL PO SCH (10:34)
[2019-07-11] MEDS: ASPIRIN PO SCH (10:34)
[2019-07-11] MEDS: KLONOPIN PO PRN (11:27)
[2019-07-11 11:38] VITALS: BP 137/83
--- NOTE | 2019-07-12 10:37 | DISCHARGE SUMMARY ---
ADMISSION DATE: 07/09/2019 DISCHARGE DATE: 07/11/2019 DISCHARGE DIAGNOSES: 1. Pneumonia. 2. Chronic obstructive pulmonary disease exacerbation. 3. Coronary artery disease, status post recent stent. 4. Hypertension. 5. Severe peripheral vascular disease. 6. Polysubstance abuse. CONSULTATIONS: 1. Dr. Zambrano, General Surgery. 2. Dr. Orellana, Pulmonary. 3. Dr. Umaña, Cardiology. HISTORY OF PRESENT ILLNESS: Briefly, a 69-year-old male, coming in with chest pain essentially. He had a recent stent, but it was in [place], and I guess he left AGAINST MEDICAL ADVICE, but he came back in with chest pain. He was admitted by Dr. Montes De Oca. He carries diagnosis of pulmonary fibrosis as well. I think he was empirically placed on antibiotics. His echocardiogram showed an EF of 55% with grade 1 diastolic dysfunction, but the rest of the test looked good. His aorta with runoff showed blood flow down to both feet through collateral flow. He had a lot of calcifications in the left external and internal iliacs completely occluded, superficial but reconstitute distally, intermittent high-grade stenosis, intermittent popliteal stenosis, so there is not a complete obstruction, although there is significant disease on down the line. Same thing with the left, and he has a stent in the superficial femoral artery down to the proximal popliteal artery, but the stent is patent. Again, he had pulses in both feet, so there is no clear surgical target. He just had a stent, so he cannot do any other procedures for the time being. It was done about 3 weeks ago. Anyway, he was observed. He ruled out. Dr. Orellana encouraged tobacco cessation and marijuana cessation. Dr. Zambrano recommended followup with Dr. Agustin. He had been on Pletal, but at a very low dose, and I increased the dose. In any case, the patient was felt stable for discharge. DISCHARGE MEDICATIONS: Aspirin 81 daily, doxazosin 4 daily, Glucophage 500 b.i.d., Lipitor 40 daily, lisinopril 30 daily, Neurontin 300 t.i.d., Norvasc 5 daily, Paxil 20 daily, Requip 0.5 at bedtime, tiotropium/olodaterol which is Stiolto daily, albuterol 4 times a day, Voltaren 50 b.i.d., Anita every 6 hours p.r.n., and Pletal was increased to 100 b.i.d. DISCHARGE CONDITION: Stable. FOLLOWUP: He will need to follow up with Dr. Ely, Dr. Zambrano, Dr. Orellana for PFTs. He has not yet established a primary care physician. TIME SPENT: A 32-minute discharge. cc: Manuel Frances MD
== END 2019-07-11 14:57 | disposition home health service (06) | DRG 194 ==
LOC: ED 16:49 → SUATTDRO 22:39 → EDIPHOLD 22:39 → 4N 07-09 12:55
PROVIDERS: ATTEND Internal Medicine